=== PATIENT | female | born 1955 | race Caucasian/White ===

== ENCOUNTER 2020-04-23 10:54 | Inpatient (IN) | payer MEDICARE, MEDICAID ==
[~2020-04-23] VITALS: Ht 160 cm; Wt 71.3 kg
[2020-04-23] VITALS (9 sets, daily range): BP systolic 133–160; BP diastolic 60–80
[2020-04-23] MEDS ORDERED: OXCA300T29 PO (10:58)
[2020-04-23] MEDS ORDERED: CHOL100018 PO (10:58)
[2020-04-23] MEDS ORDERED: LEVO150 PO (10:58)
[2020-04-23] MEDS ORDERED: ATOR40TA28 PO (10:58)
[2020-04-23] MEDS ORDERED: NAPR250T4 PO (10:58)
[2020-04-23] MEDS ORDERED: LEVE250T55 PO (10:58)
[2020-04-23] MEDS ORDERED: DOCU-275 PO (10:58)
[2020-04-23] MEDS ORDERED: PARO20TA24 PO (10:58)
[2020-04-23] MEDS ORDERED: AMLO10TA7 PO (10:58)
[2020-04-23] MEDS ORDERED: ACETAMINOPHEN 325 MG TABLET PO PRN (13:30)
[2020-04-23 13:35] LABS: BASOPHILS % (AUTO) 0.5 % (0.0-2.0); HEMATOCRIT 22.1 % (36-46); LYMPHOCYTES # (AUTO) 1.2 K/uL (1.0-4.8); LYMPHOCYTES % (AUTO) 14.6 % (22.0-44.0); MEAN CORPUSCULAR HGB CONC 30.8 G/dL (31.0-37.0); MEAN CORPUSCULAR VOLUME 65 fL (80-100); MONOCYTES # (AUTO) 0.9 K/uL (0.1-1.0); MONOCYTES % (AUTO) 11.4 % (2.0-9.0); NEUTROPHILS # (AUTO) 5.9 K/uL (1.8-7.7); NEUTROPHILS % (AUTO) 71.5 % (40.0-70.0); PLATELET COUNT (AUTO) 368 K/uL (150-450); RED CELL DISTRIBUTION WIDTH 16.9 % (11.5-14.5)
[2020-04-23 13:53] LABS: HEMOGLOBIN 6.8 g/dL (12.0-16.0)
[2020-04-23] MEDS ORDERED: SODIUM CHLORIDE 0.9% 1,000 ML ONE (14:10)
[2020-04-23 14:30] LABS: ALANINE AMINOTRANSFERASE 30 U/L (12-78); ALBUMIN 3.5 g/dL (3.4-5.0); ALKALINE PHOSPHATASE 129 U/L (46-116); ANION GAP 8 mmol/L (8-16); ASPARTATE AMINOTRANSFERASE 22 U/L (15-37); BILIRUBIN,TOTAL 0.2 mg/dL (0.1-1.0); CALCIUM, TOTAL 8.8 mg/dL (8.8-10.5); CARBON DIOXIDE 27 mmol/L (22-29); CHLORIDE 98 mmol/L (98-107); CREATINE KINASE, TOTAL ONLY 162 U/L (26-192); CREATININE 0.62 mg/dL (0.60-1.30); FREE T4 (FREE THYROXINE) 0.59 ng/dL (0.76-1.46); GLOMERULAR FILTR. RATE CALC > 60 mL/min (>60); GLUCOSE,RANDOM 96 mg/dL (70-110); POTASSIUM 4.2 mmol/L (3.5-5.1); SODIUM SERUM 133 mmol/L (136-145); THYROID STIMULATING HORMONE 15.92 uIU/mL (0.36-3.74); TOTAL PROTEIN, SERUM 7.3 g/dL (6.4-8.2); UREA NITROGEN, BLOOD 15 mg/dL (7-18)
[2020-04-23 14:35] LABS: PROTHROMBIN TIME 9.9 SEC (9.4-11.6)
[2020-04-23 14:39] LABS: B-TYPE NATRIURETIC PEPTIDE 46 pg/mL (0-100)
[2020-04-23] MEDS ORDERED: LEVOTHYROXINE SODIUM 100 MCG VIAL IVP ONE (15:30)
[2020-04-23] MEDS: HEPARIN SODIUM,PORCINE 5,000 UNITS/ML VIAL SQ SCH ×2 (16:39→23:35)
[2020-04-23 16:59] LABS: APPEARANCE,URINE CLOUDY (CLEAR); BILIRUBIN,URINE NEGATIVE (NEGATIVE); GLUCOSE, URINE (UA) NEGATIVE (NEGATIVE); KETONES,URINE NEGATIVE (NEGATIVE); LEUKOCYTE ESTERASE ,URINE MODERATE (NEGATIVE); NITRATE,URINE POSITIVE (NEGATIVE); OCCULT BLOOD,URINE NEGATIVE (NEGATIVE); PH,URINE 6.5 (5.0-8.0); PROTEIN,URINE NEGATIVE (NEGATIVE); UROBILINOGEN,URINE 0.2 mg/dL (<=1.0)
[2020-04-23 17:07] LABS: BACTERIA,URINE Many /HPF (None Seen); RBC,URINE None Seen /HPF (0-2); SQUAMOUS EPITHELIAL CELL,UR Moderate /LPF (None Seen)
[2020-04-23] MEDS ORDERED: CefTRIAXone 1 GM/DEXTROSE 50 ML IV ONE (18:30)
[2020-04-23] MEDS: DOCUSATE SODIUM 100 MG CAPSULE PO SCH (20:19)
[2020-04-23] MEDS: ATORVASTATIN CALCIUM 20 MG TABLET PO SCH (20:19)
[2020-04-23] MEDS: CloNIDine HCL 0.1 MG TABLET PO PRN (20:19)
[2020-04-23] MEDS ORDERED: SODIUM CHLORIDE 0.9% 250 ML IV ONE (21:00)
[2020-04-23] MEDS: SOD FERRIC GLUC COMPLX/SUCROSE 125 MG in SODIUM CHLORIDE 0.9% 100 ML IV SCH (22:32)
[2020-04-23] MEDS: LevETIRAcetam 250 MG TABLET PO SCH (23:35)
[2020-04-24] VITALS: BP 133/73
[2020-04-24 04:30] VITALS: BP 128/73
[2020-04-24] MEDS: LEVOTHYROXINE SODIUM 200 MCG TABLET PO SCH (06:18)
[2020-04-24 06:25] LABS: BASOPHILS % (AUTO) 0.6 % (0.0-2.0); EOSINOPHILS % (AUTO) 4.1 % (1.0-6.0); LYMPHOCYTES # (AUTO) 1.6 K/uL (1.0-4.8); LYMPHOCYTES % (AUTO) 22.8 % (22.0-44.0); MEAN CORPUSCULAR HEMOGLOBIN 21.4 pg (26.0-34.0); MEAN CORPUSCULAR HGB CONC 31.8 G/dL (31.0-37.0); MEAN CORPUSCULAR VOLUME 67 fL (80-100); MONOCYTES # (AUTO) 0.8 K/uL (0.1-1.0); MONOCYTES % (AUTO) 11.3 % (2.0-9.0); NEUTROPHILS # (AUTO) 4.3 K/uL (1.8-7.7); NEUTROPHILS % (AUTO) 61.2 % (40.0-70.0); PLATELET COUNT (AUTO) 330 K/uL (150-450); RED BLOOD CELL COUNT(AUTO) 3.27 MIL/uL (4.00-5.20); RED CELL DISTRIBUTION WIDTH 18.4 % (11.5-14.5)
[2020-04-24 07:26] VITALS: BP 135/71
[2020-04-24] MEDS: HEPARIN SODIUM,PORCINE 5,000 UNITS/ML VIAL SQ SCH ×2 (08:00→15:26)
[2020-04-24] MEDS: LevETIRAcetam 250 MG TABLET PO SCH ×2 (08:21→21:11)
[2020-04-24] MEDS: FAMOTIDINE 20 MG TABLET PO SCH (08:21)
[2020-04-24] MEDS: MULTIVITAMINS WITH MINERALS, THERAPEUTIC TABLET PO SCH (08:21)
[2020-04-24] MEDS: ASPIRIN 81 MG CHEWABLE TABLET PO SCH (08:21)
[2020-04-24] MEDS: DOCUSATE SODIUM 100 MG CAPSULE PO SCH ×2 (08:21→21:11)
[2020-04-24 12:10] VITALS: BP 131/69
[2020-04-24] MEDS: CefTRIAXone 1 GM/DEXTROSE 50 ML IV SCH (12:53)
[2020-04-24 15:50] VITALS: BP 127/58
[2020-04-24 20:15] VITALS: BP 138/69
[2020-04-24] MEDS: ATORVASTATIN CALCIUM 20 MG TABLET PO SCH (21:11)
[2020-04-24] MEDS: SOD FERRIC GLUC COMPLX/SUCROSE 125 MG in SODIUM CHLORIDE 0.9% 100 ML IV SCH (21:11)
[2020-04-25] VITALS (7 sets, daily range): BP systolic 101–163; BP diastolic 62–75
[2020-04-25] MEDS: HEPARIN SODIUM,PORCINE 5,000 UNITS/ML VIAL SQ SCH ×4 (00:46→23:38)
[2020-04-25] MEDS: LEVOTHYROXINE SODIUM 200 MCG TABLET PO SCH (06:33)
[2020-04-25] MEDS: LevETIRAcetam 250 MG TABLET PO SCH ×2 (08:46→20:11)
[2020-04-25] MEDS: FAMOTIDINE 20 MG TABLET PO SCH (08:46)
[2020-04-25] MEDS: MULTIVITAMINS WITH MINERALS, THERAPEUTIC TABLET PO SCH (08:46)
[2020-04-25] MEDS: DOCUSATE SODIUM 100 MG CAPSULE PO SCH ×2 (08:46→20:11)
[2020-04-25] MEDS: ASPIRIN 81 MG CHEWABLE TABLET PO SCH (08:46)
[2020-04-25 09:32] LABS: HEMATOCRIT 23.2 % (36-46); HEMOGLOBIN 7.4 g/dL (12.0-16.0); MEAN CORPUSCULAR HEMOGLOBIN 21.4 pg (26.0-34.0); MEAN CORPUSCULAR HGB CONC 31.8 G/dL (31.0-37.0); MEAN CORPUSCULAR VOLUME 67 fL (80-100); PLATELET COUNT (AUTO) 323 K/uL (150-450); RED BLOOD CELL COUNT(AUTO) 3.44 MIL/uL (4.00-5.20); RED CELL DISTRIBUTION WIDTH 18.5 % (11.5-14.5)
[2020-04-25 09:46] LABS: ANION GAP 6 mmol/L (8-16); CALCIUM, TOTAL 8.3 mg/dL (8.8-10.5); CARBON DIOXIDE 26 mmol/L (22-29); CHLORIDE 100 mmol/L (98-107); CREATININE 0.62 mg/dL (0.60-1.30); GLOMERULAR FILTR. RATE CALC > 60 mL/min (>60); GLUCOSE,RANDOM 111 mg/dL (70-110); POTASSIUM 3.9 mmol/L (3.5-5.1); SODIUM SERUM 132 mmol/L (136-145); UREA NITROGEN, BLOOD 10 mg/dL (7-18)
[2020-04-25 10:10] LABS: BAND NEUTROPHILS % (MANUAL) 1 % (0-5); LYMPHOCYTES % (MANUAL) 21 % (22-44); MONOCYTES % (MANUAL) 2 % (2-9); SEGMENTED NEUTROPHILS % 76 % (40-70)
[2020-04-25] MEDS: CefTRIAXone 1 GM/DEXTROSE 50 ML IV SCH (13:05)
[2020-04-25] MEDS: CloNIDine HCL 0.1 MG TABLET PO PRN (13:09)
[2020-04-25] MEDS: ATORVASTATIN CALCIUM 20 MG TABLET PO SCH (20:11)
[2020-04-25] MEDS: SOD FERRIC GLUC COMPLX/SUCROSE 125 MG in SODIUM CHLORIDE 0.9% 100 ML IV SCH (20:11)
[2020-04-25] MEDS ORDERED: SODIUM CHLORIDE 0.9% 250 ML IV ONE (23:32)
[2020-04-26 04:48] VITALS: BP 128/65
[2020-04-26] MEDS: LEVOTHYROXINE SODIUM 200 MCG TABLET PO SCH (06:04)
[2020-04-26] MEDS: LevETIRAcetam 250 MG TABLET PO SCH (08:32)
[2020-04-26] MEDS: ASPIRIN 81 MG CHEWABLE TABLET PO SCH (08:32)
[2020-04-26] MEDS: HEPARIN SODIUM,PORCINE 5,000 UNITS/ML VIAL SQ SCH (08:32)
[2020-04-26] MEDS: MULTIVITAMINS WITH MINERALS, THERAPEUTIC TABLET PO SCH (08:32)
[2020-04-26] MEDS: DOCUSATE SODIUM 100 MG CAPSULE PO SCH (08:32)
[2020-04-26] MEDS: FAMOTIDINE 20 MG TABLET PO SCH (08:32)
[2020-04-26] MEDS: CloNIDine HCL 0.1 MG TABLET PO PRN (08:33)
[2020-04-26 08:36] VITALS: BP 170/76
[2020-04-26 11:58] VITALS: BP 138/64
[2020-04-26] MEDS: CefTRIAXone 1 GM/DEXTROSE 50 ML IV SCH (12:28)
== END 2020-04-26 14:40 | DRG 811 ==
LOC: EMS 10:55 → 5S 13:28
PROVIDERS: ADMIT Internal Medicine; ATTEND Internal Medicine
PROC: 30233N1 Transfusion of Nonautologous Red Blood Cells into Peripheral Vein, Percutaneous Approach (ICD-10-PCS; principal; 2020-04-23)
PROC: 05HY33Z Insertion of Infusion Device into Upper Vein, Percutaneous Approach (ICD-10-PCS; 2020-04-23)
DX: D50.9 Iron deficiency anemia, unspecified (principal); E43 Unspecified severe protein-calorie malnutrition; G93.41 Metabolic encephalopathy; N39.0 Urinary tract infection, site not specified; I69.354 Hemiplegia and hemiparesis following cerebral infarction affecting left non-dominant side; R60.9 Edema, unspecified; E03.9 Hypothyroidism, unspecified; R62.7 Adult failure to thrive; I10 Essential (primary) hypertension; D63.8 Anemia in other chronic diseases classified elsewhere; F03.90 Unspecified dementia, unspecified severity, without behavioral disturbance, psychotic disturbance, mood disturbance, and anxiety; G40.909 Epilepsy, unspecified, not intractable, without status epilepticus; Z68.27 Body mass index [BMI] 27.0-27.9, adult; Z79.82 Long term (current) use of aspirin; Z20.828 Contact with and (suspected) exposure to other viral communicable diseases
CPT/HCPCS: 36245; 36569; 70450; 76937; 82271; 84439; 84443; 85007; 86850; 86900; 86901; 86923; 87086; 93005; 93306; 93970; 97162; 97166; 97530; 97535; G0378; G0482; J0696; J1644; J2916; J3490; J7030; J7050; P9016